=== PATIENT | male | born 1975 | race Caucasian/White ===

== ENCOUNTER 2022-02-12 11:04 | Outpatient (REF) | payer MEDICARE, MEDICAID, SELFPAY ==
--- NOTE | ~2022-02-12 | XR_ITS ---
EXAMINATION: XR ELBOW, RIGHT CLINICAL INFORMATION: Pain COMPARISON: None TECHNIQUE: AP, lateral, and oblique views of the right elbow. FINDINGS: No acute fracture or dislocation is seen. There is a well-corticated ossification seen on the AP and oblique view projecting adjacent to the medial side of the capitellum questionable for old ununited fracture fragment or ossified intra-articular loose body. The joint spaces are normal. There is no joint effusion. XR/XR elbow RT min 3V IMPRESSION: Question old fracture of the capitellum versus ossified intra-articular loose body.
== END 2022-02-12 11:05 | disposition home or self-care (01) ==
LOC: HO.XRAY 11:04
PROVIDERS: PCP Family Medicine; Visit Provider Internal Medicine Rheumatology
DX: M25.521 Pain in right elbow (principal); M77.11 Lateral epicondylitis, right elbow; M79.7 Fibromyalgia; M47.816 Spondylosis without myelopathy or radiculopathy, lumbar region; Z79.899 Other long term (current) drug therapy
CPT/HCPCS: 73080; 99212

== ENCOUNTER → 2022-08-14 07:46 | Outpatient (BNVA) | payer MEDICARE, MEDICAID, SELFPAY | PROVIDERS: PCP Family Medicine; Visit Provider Internal Medicine Rheumatology | DX: M47.816 Spondylosis without myelopathy or radiculopathy, lumbar region (principal); M25.521 Pain in right elbow; M24.021 Loose body in right elbow; M79.7 Fibromyalgia | CPT/HCPCS: 99212 ==

== ENCOUNTER → 2022-10-03 10:31 | Outpatient (BNVA) | payer MEDICARE, MEDICAID, SELFPAY | PROVIDERS: PCP Family Medicine; Visit Provider Orthopaedic Surgery | DX: M77.11 Lateral epicondylitis, right elbow (principal); M24.021 Loose body in right elbow | CPT/HCPCS: 99202 ==

== ENCOUNTER → 2023-02-10 12:55 | Outpatient (BNVA) | payer MEDICARE, MEDICAID, SELFPAY | PROVIDERS: PCP Family Medicine; Visit Provider Internal Medicine Rheumatology | DX: M79.7 Fibromyalgia (principal); G56.03 Carpal tunnel syndrome, bilateral upper limbs; M47.816 Spondylosis without myelopathy or radiculopathy, lumbar region; Z79.899 Other long term (current) drug therapy | CPT/HCPCS: 99212 ==

== ENCOUNTER 2023-08-13 09:53 | Outpatient (AMB) | payer MEDICARE, MEDICAID, SELFPAY ==
[2023-08-13 09:55] VITALS: BP 140/76; PULSE 88; TEMP 36.8; O2SAT 98; BMI 27.4
--- NOTE | 2023-08-13 09:55 | A.OFFVIS_ITS ---
Intake Vital Signs 08/13/23 09:55 Height 5 ft 9 in Weight 185 lb 6.54 oz BMI 27.4 BP 140/76 H Blood Pressure Location Lt brachial Position Sitting Pulse 88 Pulse Source Pulse Oximeter Temp 98.2 F Temp Source Tympanic Pulse Oximetry (%) 98 Oxygen Delivery Method Room Air Intake Visit Reasons: Crew Member Required: No Allergies No Known Allergies Allergy (Verified 08/13/23 09:57) Medication List - Last Reconciled 08/13/23 by Niki Bergeron RN atorvastatin 40 mg PO DAILY bupropion HCl 150 mg PO QAM hydrochlorothiazide 25 mg PO DAILY hydroxyzine HCl 25 mg PO BEDTIME lisinopril 20 mg PO DAILY pregabalin (Lyrica) 100 mg PO BID HPI HPI Comments History of Present Illness Details The patient returns for evaluation of his fibromyalgia. He had been on Lyrica 100 b.i.d., bupropion and hydroxyzine from his behavior health prescriber. He was also on hydrochlorothiazide,, atorvastatin, and lisinopril from his PCP. However he ended up incarcerated in May and just got out a few weeks ago. Apparently this was for a parole violation. He says they only gave him acetaminophen at the senior living and he had more pain. His anxiety was worse at the senior living any slept very poorly. He tried to belt picker his Lyrica when he got out of senior living at the pharmacy but it was . He has been taking the acetaminophen which helps only a little bit. He did have conversations with his mental health prescriber and his PCP; he says that appointments are set up in the next week or 2. He wonders if he could be taking higher doses of the Lyrica . His pains are most problematic in the neck and posterior shoulder area as well as the low back with some radiation to the right buttock. There was no injury involved recently. His anxiety is elevated and he has some degree of tremor. [facility] History History of cholecystectomy (~2011) Social History Household Members Other:: lives alone Housing: Apartment Are you a primary direct care specialist to a significant other at home: No Do you presently have visiting nurse or other home services: No 75 years or older and lives alone: No Alcohol intake: never Patient Tobacco Use Status: Current someday Tobacco user Years Smoked: Smoked for 30 years in process of quitting down to 2 cigarettes a day service: No Current occupational status: disabled Review of Systems Const Details: There is some daytime fatigue. He is not sleeping well. Negative for appetite change, weight change, fever, chills, malaise Eyes Details: Negative for vision change, dry eyes,headaches and dizziness ENT Details: Negative for hearing change, tinnitus, oral ulcer, nose bleeds and oral dryness. Card Details: Negative chest pain, edema and syncope Resp Details: Negative for SOB, cough and wheezing GI Details: Negative indigestion/heartburn, nausea, abdominal pain, bowel changes, diarrhea, constipation and bloody stool. Neuro Details: He feels tremulous at times. He has bilateral hand numbness, more prominent on the right. Previous nerve testing did confirm carpal tunnel syndrome. He had been avoiding surgery. Negative for epilepsy, palsy, stroke, changes in speech, and weakness Psych Details: For anxiety, not sleeping well. Leif/Lymph Details: Negative for excessive bruising or bleeding. Physical Exam Vital Signs: Last Vital Signs Temp 98.2 F 08/13/23 09:55 Pulse 88 08/13/23 09:55 BP 140/76 H 08/13/23 09:55 Pulse Ox 98 08/13/23 09:55 Oxygen Delivery Method Room Air 08/13/23 09:55 BMI result Body Mass Index 27.4 APPEARANCE: Patient in no acute distress EYES no redness, pupils equal and reactive to light, eyelids normal EARS: External ear normal, canal clear and tympanic membrane normal. NOSE/SINUS: Airflow through both nares, no nasal discharge, no bleeding THROAT: Oral mucosa moist, no ulcerations NECK: No thyromegaly or masses, no adenopathy, trachea midline. HEART: Regulrar rhythm, S1-S2 heard, no murmurs, rubs or gallops. LUNG: Clear to percussion and auscultation ABD: Normal bowel sounds, no organomegaly, masses or tenderness. EXTREMITIES: No edema, no calf tenderness, normal peripheral pulses. NEURO: Oriented and alert x3. No focal weakness. Reflexes symmetric. He has some degree of an intention tremor in the upper extremities. Gait normal. JOINT EXAM: ?? Cervical Spine:.? Mild pain with extremes of normal range of motion.? Mild cervical muscle tenderness. Thoracic Spine:.? No scoliosis.? No tenderness on palpation. Lumbar Spine:.? Alignment normal.? Lumbar pain with flexion of 45 degrees.? Mild pain with attempts at hyperextension.? There is mild paraspinal muscle tenderness. Straight leg raising on the right causes buttock pain at about 60 degrees. Chest Wall:.? No tenderness, swelling, increased warmth or erythema. Hands:.? Normal pain-free range of motion without tenderness, swelling, increased warmth or erythema. Able to make a full fist and has a good pipeline dispatcher strength.? No apparent sensory loss. Wrists:.? Normal pain-free range of motion without tenderness, swelling, increased warmth or erythema. Elbows:? Right: Slight pain with full extension.? The pain is felt over the lateral aspect.? There is some tenderness over the joint space and the lateral epicondyle.? No redness or warmth.? No appreciable swelling.? The Left:? Normal pain-free range of motion without tenderness, swelling, increased warmth or erythema. Shoulders:.?? Full range of motion without pain. No tenderness, weakness, swelling, increased warmth or erythema. Hips:.? Full range of motion without pain. Hip bursa:.? No tenderness. Knees:.?? Normal pain-free range of motion without tenderness, swelling, increased warmth or erythema.? There is no effusion or crepitation Ankles:.? Normal pain-free range of motion without tenderness, swelling, increased warmth or erythema. Feet:? Normal pain-free range of motion without tenderness, swelling, increased warmth or erythema. Tender points:? Mild tenderness to digital palpation at the occiput, trapezius, second rib, lateral epicondyle, knees, greater trochanter and gluteal area bilaterally. ?trapezius, second rib, lateral epicondyle, knees, greater trochanter and Results Reviewed Results Reviewed: Lab work from [facility] labs 07/01/2023: White count 12.6, hemoglobin 14.6, sodium 131, potassium 4.4, BUN 11, creatinine 0.8, AST 25, ALT 39, hepatitis C antibody negative, negative ST S, negative HIV testing. Assessment & Plan Assessment & Plan (1) Osteoarthritis of lumbar spine: Code(s): M47.816 - Spondylosis without myelopathy or radiculopathy, lumbar region (2) Carpal tunnel syndrome on both sides: Comment: Right moderate, left mild on EMG 09/05 Code(s): G56.03 - Carpal tunnel syndrome, bilateral upper limbs (3) Loose body in right elbow: Code(s): M24.021 - Loose body in right elbow (4) Fibromyalgia: Comment: onset 2005 on Lyrica since 08/2013 Code(s): M79.7 - Fibromyalgia Plan The patient still has widespread pains without signs of an active inflammatory arthritis. There are many tender points so this looks very similar to his usual presentation. He does have known carpal tunnel syndrome, worse in the right hand and has a loose body in the right elbow that gets some pain at times. I suspect some of his back pain and neck pain is due to lumbar and cervical degenerative processes. I think his fibromyalgia is likely to be worse since he has been off is antidepressants and has been in a stressful situation at the senior living. We will restart his pregabalin 100 mg at night for week and then he will go up to b.i.d. thereafter. I told him to get back on his bupropion or other antidepressants that might be available to him through his psychiatrist. He was warned that hydroxyzine, bupropion, and pregabalin can all be sedating so he should be careful about taking daytime pregabalin until he gets used to the nighttime dosing. A follow-up in 3-4 months seems reasonable at this point. Medications: Refilled pregabalin (Lyrica) 100 mg PO BID 180 caps 1RF M79.7 - Fibromyalgia Coding Level of Care Code Tele Est Pt Level 3 (42279) Diagnoses Osteoarthritis of lumbar spine M47.816 Carpal tunnel syndrome on both sides G56.03 Loose body in right elbow M24.021 Fibromyalgia M79.7
== END 2023-08-13 10:24 | disposition home or self-care (01) ==
LOC: HO.RHE 09:53
PROVIDERS: PCP Family Medicine; Visit Provider Internal Medicine Rheumatology
DX: M47.816 Spondylosis without myelopathy or radiculopathy, lumbar region (principal); G56.03 Carpal tunnel syndrome, bilateral upper limbs; M24.021 Loose body in right elbow; M79.7 Fibromyalgia
CPT/HCPCS: 99214

== ENCOUNTER → 2023-08-13 09:53 | Outpatient (BNVA) | payer MEDICARE, MEDICAID, SELFPAY | PROVIDERS: PCP Family Medicine; Visit Provider Internal Medicine Rheumatology | DX: M79.7 Fibromyalgia (principal); M47.816 Spondylosis without myelopathy or radiculopathy, lumbar region; M24.021 Loose body in right elbow; G56.03 Carpal tunnel syndrome, bilateral upper limbs | CPT/HCPCS: 99212 ==

== ENCOUNTER 2023-12-02 15:23 | Outpatient (AMB) | payer MEDICARE, MEDICAID, SELFPAY ==
--- NOTE | 2023-12-02 15:25 | MHC.OFFVIS ---
Intake Vital Signs 12/02/23 15:33 Height 5 ft 9 in Weight 184 lb 4.903 oz BMI 27.2 BP 132/80 Blood Pressure Location Rt brachial Position Sitting Pulse 83 Pulse Source Pulse Oximeter Pulse Oximetry (%) 97 Oxygen Delivery Method Room Air Intake Visit Reasons: FM / Intake Note: Patient presents today for follow up. Patient due for Pregabalin today. Left elbow pain x 2 wks Data Processing Specialist Required: No Accompanied by: Self / Same As Patient Allergies No Known Allergies Allergy (Verified 12/02/23 15:34) HPI HPI Comments History of Present Illness Details Mr. Carmichael 48-year-old male returns for follow-up of his fibromyalgia. He had been on Lyrica 100 b.i.d., bupropion and hydroxyzine from his behavior health prescriber. He was also on hydrochlorothiazide,, atorvastatin, and lisinopril from his PCP. He appears more settled today and his meeting with his PCP and therapist regularly. His complaint of pain continues especially to his upper back, neck, and shoulders and lower back. 08/13/2023: The patient returns for evaluation of his fibromyalgia. He had been on Lyrica 100 b.i.d., bupropion and hydroxyzine from his behavior health prescriber. He was also on hydrochlorothiazide,, atorvastatin, and lisinopril from his PCP. However he ended up incarcerated in May and just got out a few weeks ago. Apparently this was for a parole violation. He says they only gave him acetaminophen at the [facility] and he had more pain. His anxiety was worse at the [facility] any slept very poorly. He tried to warehouse picker his Lyrica when he got out of [facility] at the pharmacy but it was . He has been taking the acetaminophen which helps only a little bit. He did have conversations with his mental health prescriber and his PCP; he says that appointments are set up in the next week or 2. He wonders if he could be taking higher doses of the Lyrica . His pains are most problematic in the neck and posterior shoulder area as well as the low back with some radiation to the right buttock. There was no injury involved recently. His anxiety is elevated and he has some degree of tremor. [facility] Medical History (Updated 12/02/23 @ 15:55 by DUSTIN Preciado) Hypovitaminosis D Large joint arthralgia of multiple sites Muscle spasm of back Surgical History History of cholecystectomy (~2011) Social History (Updated 12/02/23 @ 15:34 by SILVANO Cole) Household Members Other:: lives alone Housing: Apartment Are you a primary hospice home care coordinator to a significant other at home: No Do you presently have visiting nurse or other home services: No 75 years or older and lives alone: No Alcohol intake: never Patient Tobacco Use Status: Current everyday Tobacco user Tobacco use type: Cigarette Cigarette Packs Per Day: 10 service: No Current occupational status: disabled Review of Systems Const All systems reviewed & are unremarkable except as noted in HPI and below Physical Exam Vital Signs: Last Vital Signs Pulse 83 12/02/23 15:33 BP 132/80 12/02/23 15:33 Pulse Ox 97 12/02/23 15:33 Oxygen Delivery Method Room Air 12/02/23 15:33 BMI result Body Mass Index 27.2 APPEARANCE: Patient in no acute distress EYES no redness, pupils equal and reactive to light, eyelids normal EARS: External ear normal, canal clear and tympanic membrane normal. NOSE/SINUS: Airflow through both nares, no nasal discharge, no bleeding THROAT: Oral mucosa moist, no ulcerations NECK: No thyromegaly or masses, no adenopathy, trachea midline. HEART: Regulrar rhythm, S1-S2 heard, no murmurs, rubs or gallops. LUNG: Clear to percussion and auscultation ABD: Normal bowel sounds, no organomegaly, masses or tenderness. EXTREMITIES: No edema, no calf tenderness, normal peripheral pulses. NEURO: Oriented and alert x3. No focal weakness. Reflexes symmetric. He has some degree of an intention tremor in the upper extremities. Gait normal. JOINT EXAM: ?? Cervical Spine:.? Mild pain with extremes of normal range of motion.? Mild cervical muscle tenderness. Thoracic Spine:.? No scoliosis.? No tenderness on palpation. Lumbar Spine:.? Alignment normal.? Lumbar pain with flexion of 45 degrees.? Mild pain with attempts at hyperextension.? There is mild paraspinal muscle tenderness. Straight leg raising on the right causes buttock pain at about 60 degrees. Chest Wall:.? No tenderness, swelling, increased warmth or erythema. Hands:.? Normal pain-free range of motion without tenderness, swelling, increased warmth or erythema. Able to make a full fist and has a good tile fitter strength.? No apparent sensory loss. Wrists:.? Normal pain-free range of motion without tenderness, swelling, increased warmth or erythema. Elbows:? Right: Slight pain with full extension.? The pain is felt over the lateral aspect.? There is some tenderness over the joint space and the lateral epicondyle.? No redness or warmth.? No appreciable swelling.? The Left:? Normal pain-free range of motion without tenderness, swelling, increased warmth or erythema. Shoulders:.?? Full range of motion without pain. No tenderness, weakness, swelling, increased warmth or erythema. Hips:.? Full range of motion without pain. Hip bursa:.? No tenderness. Knees:.?? Normal pain-free range of motion without tenderness, swelling, increased warmth or erythema.? There is no effusion or crepitation Ankles:.? Normal pain-free range of motion without tenderness, swelling, increased warmth or erythema. Feet:? Normal pain-free range of motion without tenderness, swelling, increased warmth or erythema. Tender points:? Mild tenderness to digital palpation at the occiput, trapezius, second rib, lateral epicondyle, knees, greater trochanter and gluteal area bilaterally. ?trapezius, second rib, lateral epicondyle, knees, greater trochanter and Results Reviewed Results Reviewed: Need updated lab Assessment & Plan Assessment & Plan (1) Osteoarthritis of lumbar spine: Code(s): M47.816 - Spondylosis without myelopathy or radiculopathy, lumbar region Qualifiers: Spinal osteoarthritis complication: with radiculopathy Qualified Code(s): M47.26 - Other spondylosis with radiculopathy, lumbar region (2) Carpal tunnel syndrome on both sides: Comment: Right moderate, left mild on EMG 09/05 Code(s): G56.03 - Carpal tunnel syndrome, bilateral upper limbs (3) Loose body in right elbow: Code(s): M24.021 - Loose body in right elbow (4) Fibromyalgia: Comment: onset 2005 on Lyrica since 08/2013 Code(s): M79.7 - Fibromyalgia Plan #Fibromyalgia: The patient still has widespread pains. There are many tender points so this looks very similar to his usual presentation. He can continue his Lyrica 100 mg b.i.d. he will continue his mood management medication with his therapist/ psychiatrist. I reminded patient that hydroxyzine, bupropion, and pregabalin can all be sedating so he should be careful about taking daytime pregabalin. He also takes escitalopram. #OA multiple Sites/Joint pain: I suspect some of his back pain and neck pain is due to lumbar and cervical degenerative processes. But I think he is also experiencing muscle spasming especially to the upper back region. I think he can benefit from some muscle relaxer so prescribe him some baclofen to try and so we can reassess if it is effective for him. He does have known carpal tunnel syndrome, worse in the right hand and has a loose body in the right elbow that gets some pain at times. He can continue to use Acetaminophen and ibuprofen as needed for his osteoarthritis pain. We discussed precautions such as not to take on an empty stomach, and be alert for any signs of bleeding. I do not have record that evidence a thorough rheumatology panel so I will obtain 1 at this time. Follow-up in 4 months I spent 40 minutes reviewing history, evaluating patient and documenting Orders: Orders Erythrocyte Sedimentation Rate 12/02/23 M25.50 - Pain in unspecified joint LESIA Reflex Titer and Pattern 12/02/23 M25.50 - Pain in unspecified joint Complete Blood Count Auto Diff 12/02/23 M25.50 - Pain in unspecified joint C Reactive Protein 12/02/23 M25.50 - Pain in unspecified joint Creatine Kinase Total 12/02/23 M25.50 - Pain in unspecified joint Immunoglobulins,IgG IgA IgM 12/02/23 M25.50 - Pain in unspecified joint Immunofixation Pnl, Serum 12/02/23 M25.50 - Pain in unspecified joint Protein Electrophoresis, Serum 12/02/23 M25.50 - Pain in unspecified joint Sjogren's Antibodies 12/02/23 M25.50 - Pain in unspecified joint Uric Acid 12/02/23 M25.50 - Pain in unspecified joint Anti-Centromere B Antibodies 12/02/23 M25.50 - Pain in unspecified joint Anti DNA DS Antibody 12/02/23 M25.50 - Pain in unspecified joint Anti Extractable Nuclear Ag 12/02/23 M25.50 - Pain in unspecified joint Comprehensive Met. Panel 12/02/23 M25.50 - Pain in unspecified joint Vitamin D 25-OH (D2 and D3) 12/02/23 E55.9 - Vitamin D deficiency, unspecified, M25.50 - Pain in unspecified joint Medications: New baclofen 5 mg PO BID 120 tabs 0RF M62.830 - Muscle spasm of back, M79.7 - Fibromyalgia Coding Level of Care Code Est Pt Level 4 (40750) Diagnoses Osteoarthritis of spine with radiculopathy, lumbar region M47.26 Spinal osteoarthritis complication: with radiculopathy Carpal tunnel syndrome on both sides G56.03 Loose body in right elbow M24.021 Fibromyalgia M79.7
[2023-12-02 15:33] VITALS: BP 132/80; PULSE 83; O2SAT 97; BMI 27.2
== END 2023-12-02 16:04 | disposition home or self-care (01) ==
PROVIDERS: PCP Family Medicine; Visit Provider Nurse Practitioner Family
DX: M47.26 Other spondylosis with radiculopathy, lumbar region (principal); G56.03 Carpal tunnel syndrome, bilateral upper limbs; M24.021 Loose body in right elbow; M79.7 Fibromyalgia
CPT/HCPCS: 99214

== ENCOUNTER → 2023-12-02 15:23 | Outpatient (BNVA) | payer MEDICARE, MEDICAID, SELFPAY | PROVIDERS: PCP Family Medicine; Visit Provider Nurse Practitioner Family | DX: M47.26 Other spondylosis with radiculopathy, lumbar region (principal); M24.021 Loose body in right elbow; M79.7 Fibromyalgia; G56.03 Carpal tunnel syndrome, bilateral upper limbs | CPT/HCPCS: 99212 ==

== ENCOUNTER 2024-08-05 08:16 | Outpatient (AMB) | payer MEDICARE, MEDICAID, SELFPAY ==
--- NOTE | 2024-08-05 08:21 | A.OFFVIS_ITS ---
Vital Signs 08/05/24 08:26 Height 5 ft 9 in Weight 192 lb 3.889 oz BMI 28.4 BP 124/80 Blood Pressure Location Rt brachial Position Sitting Pulse 54 Pulse Source Pulse Oximeter Pulse Oximetry (%) 98 Oxygen Delivery Method Room Air Intake Visit Reasons: FM starting baclofen/CM Intake Note: Patient presents for FM starting Baclofen. Allergies No Known Allergies Allergy (Verified 08/05/24 08:24) Medication List - Last Reconciled 08/05/24 by Elvie Miramontes MD bupropion HCl XL 150 mg PO QAM cholecalciferol (vitamin D3) 50 mcg PO DAILY escitalopram oxalate 10 mg PO QAM hydrochlorothiazide 25 mg PO DAILY pregabalin (Lyrica) 100 mg PO BID HPI Comments Details: This is a 49-year-old male with fibromyalgia who presents for follow-up. Last visit his labs showed low vitamin-D, he was started on vitamin-D, pregabalin was stopped, baclofen was started. Since pregabalin was stopped his pains have become much worse. He does not believe that vitamin-D and baclofen helped him much. He continues to feel achy mostly in the upper back area [facility] Medical History Hypovitaminosis D Large joint arthralgia of multiple sites Muscle spasm of back Surgical History History of cholecystectomy (~2011) Social History Household Members Other:: lives alone Housing: Apartment Are you a primary day care attendant to a significant other at home: No Do you presently have visiting nurse or other home services: No 75 years or older and lives alone: No Alcohol intake: never Patient Tobacco Use Status: Current everyday Tobacco user Tobacco use type: Cigarette Cigarette Packs Per Day: 10 service: No Current occupational status: disabled Review of Systems Const Reports fatigue and Reports weakness Musc Reports myalgias Neuro Reports weakness Endo Reports fatigue Physical Exam Vital Signs: Last Vital Signs Pulse 54 08/05/24 08:26 BP 124/80 08/05/24 08:26 Pulse Ox 98 08/05/24 08:26 Oxygen Delivery Method Room Air 08/05/24 08:26 BMI result Body Mass Index 28.4 Const General: cooperative, healthy appearing and comfortable Nutritional Appearance: overweight Orientation/consciousness: patient oriented x3 Limitations: no limitations HEENT Head: Yes normocephalic and Yes atraumatic Mouth: moist mucous membranes Resp Effort & Inspection: normal respiratory effort and able to speak in complete sentences Auscultation: clear to auscultation bilaterally Cardio Rate: regular rate Skin General skin exam: no rashes or lesions noted Neuro General: patient oriented x3 Extrem Other: Minimal osteoarthritic changes of both hands with no active synovitis Normal nailfold capillaroscopy Few fibromyalgia tender points Assessment & Plan Assessment & Plan (1) Fibromyalgia: Comment: onset 2005 on Lyrica since 08/2013 Code(s): M79.7 - Fibromyalgia Category: Medical Plan: This is a 49-year-old male with fibromyalgia who presents for follow-up. Last visit Lyrica was discontinued, patient was started on vitamin-D and baclofen without much improvement. His pains have been much worse since Lyrica was discontinued. Discontinue baclofen. Restart Lyrica. Advised patient to take 100 mg nightly for 2-3 weeks then increase to 100 mg Twice daily Discussed management of fibromyalgia with patient. Is a noninflammatory, non- autoimmune central afferent processing disorder leading to a diffuse pain syndrome. Patient follo ws up regularly with psychiatrist and psychotherapist. Try to follow sleep hygiene practices. Consider a referral for a sleep study by PCP to rule out SHAAN. Patient would benefit from increased physical activity, either through formal physical therapy or by joining a gym. Advised patient that she should start activity slowly and increase as tolerated. Consider low-impact exercises such as walking, swimming, aqua therapy stretching, light weights. follow-up in 6 months Plan I spent 15 minutes reviewing patient's chart, evaluating patient, counseling patient and documenting in the chart Medications: Refilled pregabalin (Lyrica) 100 mg PO BID 180 caps 1RF M79.7 - Fibromyalgia Coding Level of Care Code Est Pt Level 3 (10589) Diagnoses Fibromyalgia M79.7
[2024-08-05 08:26] VITALS: BP 124/80; PULSE 54; O2SAT 98; BMI 28.4
== END 2024-08-05 08:50 | disposition home or self-care (01) ==
PROVIDERS: PCP Family Medicine; Visit Provider Student in an Organized Health Care Education/Training Program
DX: M79.7 Fibromyalgia (principal)
CPT/HCPCS: 99213

== ENCOUNTER → 2024-08-05 08:16 | Outpatient (BNVA) | payer MEDICARE, MEDICAID, SELFPAY | PROVIDERS: PCP Family Medicine; Visit Provider Student in an Organized Health Care Education/Training Program | DX: M79.7 Fibromyalgia (principal) | CPT/HCPCS: 99212 ==